=== PATIENT | female | born 1985 | race Two or more races ===

== ENCOUNTER → 2019-07-12 | Outpatient (CLI) | payer OTHER | END | disposition home or self-care (01) | LOC: PRENATAL 10:02 | DX: O26.851 Spotting complicating pregnancy, first trimester (principal); O20.0 Threatened abortion; O36.80X1 Pregnancy with inconclusive fetal viability, fetus 1; Z34.80 Encounter for supervision of other normal pregnancy, unspecified trimester ==

== ENCOUNTER 2019-07-19 14:57 | Emergency (ER) | payer OTHER ==
[~2019-07-19] VITALS: Ht 170.2 cm; Wt 108.9 kg
== END 2019-07-19 20:09 | disposition home or self-care (01) ==
LOC: ER 14:57
DX: O21.0 Mild hyperemesis gravidarum (principal); Z34.01 Encounter for supervision of normal first pregnancy, first trimester

== ENCOUNTER → 2019-08-23 | Outpatient (CLI) | payer OTHER | END | disposition home or self-care (01) | LOC: PRENATAL 09:00 | PROVIDERS: ATTEND Specialist | DX: O99.211 Obesity complicating pregnancy, first trimester (principal); O36.80X1 Pregnancy with inconclusive fetal viability, fetus 1; O34.211 Maternal care for low transverse scar from previous cesarean delivery ==

== ENCOUNTER → 2019-10-25 | Outpatient (CLI) | payer OTHER ==
[~2019-10-25] MED LIST: D3 + K2 DOTS 11 EACH PO; PRENATABS RX T1 EACH PO; PRENATAL ONE D1 EACH PO; THIAMINE HCL100 MG PO; VITAMIN C500 M6 PO; ZINC GLUCONATE100 MG PO
== END | disposition home or self-care (01) ==
LOC: PRENATAL 10-18 10:00 → EDBD 15:35 → PRENATAL 15:35
PROVIDERS: ATTEND Obstetrics & Gynecology Maternal & Fetal Medicine
DX: O35.0XX1 Maternal care for (suspected) central nervous system malformation in fetus, fetus 1 (principal); O36.5911 Maternal care for other known or suspected poor fetal growth, first trimester, fetus 1; O34.211 Maternal care for low transverse scar from previous cesarean delivery; O98.512 Other viral diseases complicating pregnancy, second trimester; O35.3XX1 Maternal care for (suspected) damage to fetus from viral disease in mother, fetus 1; O99.212 Obesity complicating pregnancy, second trimester; Z36.89 Encounter for other specified antenatal screening; Z3A.22 22 weeks gestation of pregnancy

== ENCOUNTER 2019-11-04 15:41 | Emergency (ER) | payer OTHER ==
[~2019-11-04] VITALS: Ht 170.2 cm; Wt 110.7 kg
[2019-11-04] MEDS ORDERED: PRENATABS RX T1 EACH PO (16:21)
== END 2019-11-04 21:57 | disposition home or self-care (01) ==
LOC: ER 15:41 → EDBD 15:44 → ER 15:44
DX: U07.1 COVID-19 (principal)

== ENCOUNTER 2019-11-06 20:41 | Inpatient (IN) | payer OTHER ==
[~2019-11-06] VITALS: Ht 170.2 cm; Wt 110.7 kg
[~2019-11-06 20:41] MED LIST changes: -D3 + K2 DOTS 11 EACH PO; -PRENATAL ONE D1 EACH PO; -THIAMINE HCL100 MG PO; -VITAMIN C500 M6 PO; -ZINC GLUCONATE100 MG PO
[2019-11-28] MEDS ORDERED: VITAMIN C500 M6 PO (13:45)
[2019-11-28] MEDS ORDERED: PRENATAL ONE D1 EACH PO (13:45)
[2019-11-28] MEDS ORDERED: D3 + K2 DOTS 11 EACH PO (13:45)
[2019-11-28] MEDS ORDERED: THIAMINE HCL100 MG PO (13:45)
[2019-11-28] MEDS ORDERED: ZINC GLUCONATE100 MG PO (13:45)
== END 2019-11-28 14:05 | disposition home or self-care (01) | DRG 831 ==
LOC: LDR 20:41 → ICU 11-08 16:40
PROVIDERS: ADMIT Specialist; ATTEND Specialist
PROC: 4A033R1 Measurement of Arterial Saturation, Peripheral, Percutaneous Approach (ICD-10-PCS; 2019-11-06)
PROC: 3E0F7GC Introduction of Other Therapeutic Substance into Respiratory Tract, Via Natural or Artificial Opening (ICD-10-PCS; 2019-11-06)
PROC: 8E0ZXY6 Isolation (ICD-10-PCS; 2019-11-06)
PROC: BY4CZZZ Ultrasonography of Second Trimester, Single Fetus (ICD-10-PCS; 2019-11-07)
PROC: B24BZZZ Ultrasonography of Heart with Aorta (ICD-10-PCS; 2019-11-08)
PROC: 5A1945Z Respiratory Ventilation, 24-96 Consecutive Hours (ICD-10-PCS; 2019-11-09)
PROC: 4A12X4Z Monitoring of Cardiac Electrical Activity, External Approach (ICD-10-PCS; 2019-11-10)
PROC: 0BH17EZ Insertion of Endotracheal Airway into Trachea, Via Natural or Artificial Opening (ICD-10-PCS; principal; 2019-11-12)
PROC: 05HY33Z Insertion of Infusion Device into Upper Vein, Percutaneous Approach (ICD-10-PCS; 2019-11-12)
PROC: 0DH67UZ Insertion of Feeding Device into Stomach, Via Natural or Artificial Opening (ICD-10-PCS; 2019-11-12)
PROC: 3E0G76Z Introduction of Nutritional Substance into Upper GI, Via Natural or Artificial Opening (ICD-10-PCS; 2019-11-12)
PROC: BW40ZZZ Ultrasonography of Abdomen (ICD-10-PCS; 2019-11-16)
DX: O98.512 Other viral diseases complicating pregnancy, second trimester (principal); U07.1 COVID-19; J12.89 Other viral pneumonia; J96.01 Acute respiratory failure with hypoxia; G72.81 Critical illness myopathy; O99.512 Diseases of the respiratory system complicating pregnancy, second trimester; R00.0 Tachycardia, unspecified; R11.2 Nausea with vomiting, unspecified; Z3A.26 26 weeks gestation of pregnancy
CPT/HCPCS: 240

== ENCOUNTER 2020-02-10 10:33 | Inpatient (IN) | payer OTHER ==
[~2020-02-10] VITALS: Ht 172.7 cm; Wt 3.2 kg
[~2020-02-10 10:33] MED LIST changes: +D3 + K2 DOTS 11 EACH PO; +PRENATAL ONE D1 EACH PO; +THIAMINE HCL100 MG PO; +VITAMIN C500 M6 PO; +ZINC GLUCONATE100 MG PO
== END 2020-02-20 15:46 | disposition home or self-care (01) | DRG 785 ==
LOC: OB/GYN 02-15 08:00 → O/R 02-17 06:15 → OB/GYN 02-17 08:00
PROVIDERS: ADMIT Specialist; ATTEND Specialist
PROC: 0UB70ZZ Excision of Bilateral Fallopian Tubes, Open Approach (ICD-10-PCS; 2020-02-17)
PROC: 4A1HXFZ Monitoring of Products of Conception, Cardiac Rhythm, External Approach (ICD-10-PCS; 2020-02-17)
PROC: 10D00Z1 Extraction of Products of Conception, Low, Open Approach (ICD-10-PCS; principal; 2020-02-17 10:00)
DX: O34.211 Maternal care for low transverse scar from previous cesarean delivery (principal); Z30.2 Encounter for sterilization; Z3A.38 38 weeks gestation of pregnancy; Z37.0 Single live birth; Z86.19 Personal history of other infectious and parasitic diseases